=== PATIENT | male | born 1970 | race Caucasian/White ===

== ENCOUNTER → 2019-10-19 11:44 | Outpatient (BNVA) | payer MEDICAID, SELFPAY | PROVIDERS: Visit Provider Internal Medicine | DX: B19.20 Unspecified viral hepatitis C without hepatic coma (principal) | CPT/HCPCS: 80053; 82105; 85025; 87522; 87902 ==

== ENCOUNTER 2019-10-26 08:04 | Outpatient (CLI) | payer MEDICAID, SELFPAY ==
--- NOTE | 2019-10-26 08:00 | US_ITS ---
WS: [id number] ULTRASOUND ABDOMEN LIMITED CLINICAL INFORMATION: Hepatitis C, liver disease COMPARISON: None. FINDINGS: Liver Size: Normal. Craniocaudal length: 15.7 cm. Echogenicity: Normal. Surface nodularity: None. Mass (size and location): None. Bile ducts Intrahepatic ducts: Normal. Common bile duct diameter: 0.5 cm. Gallbladder Normal. Gallstones: None. Gallbladder sludge: None. Gallbladder wall thickening: None. Pericholecystic fluid: None. Sonographic Pop sign: Absent. Pancreas Normal as visualized. Right kidney: Normal. Hydronephrosis: None. Size: 11.3 cm x 6.3 cm x 6.0 cm. Abdominal aorta and IVC Visualized portions are normal. Ascites: None. US/US liver [id number] IMPRESSION: 1. Liver size upper limits of normal. Otherwise normal appearing liver. 2. No intrahepatic biliary duct dilatation. 3. Normal gallbladder and common bile duct. 4. No hydronephrosis in right kidney.
== END 2019-10-26 08:05 | disposition home or self-care (01) ==
PROVIDERS: Visit Provider Internal Medicine
DX: B19.20 Unspecified viral hepatitis C without hepatic coma (principal)
CPT/HCPCS: 76705

== ENCOUNTER → 2021-06-27 11:40 | Outpatient (BNVA) | payer BC, SELFPAY | PROVIDERS: Visit Provider Internal Medicine | DX: Z01.812 Encounter for preprocedural laboratory examination (principal); B19.20 Unspecified viral hepatitis C without hepatic coma; Z20.822 Contact with and (suspected) exposure to COVID-19; Z12.11 Encounter for screening for malignant neoplasm of colon | CPT/HCPCS: 80053; 82105; 87522; 87635 ==

== ENCOUNTER 2021-07-03 08:31 | Day surgery (SDC) | payer BC, MEDICAID, SELFPAY ==
[2021-06-30 09:49] VITALS: BMI 30.9
--- NOTE | 2021-07-03 08:44 | ANES.PREANE2 ---
Pre-Anesthetic Assessment Pre-Anesthetic Assessment: Height/Weight: Height 1.85 m Weight 106.594 kg Preop Diagnosis: Umbilical hernia Proposed Procedure: Operation Date: 07/03/21 10:00 Proposed Procedures p Colonoscopy [id number] [id number] Z12.11(Not Applicable) - Jourdan Aguila MD Familial anesthetic complications: None Last intake: > 8 hrs Social: Social History: Tobacco and No alcohol Exam: Pre-Anes Outpt Exam: alert, oriented x 3, clear to auscultation bilaterally and regular rate & rhythm Airway: MP: 3 Dentition: False Additional comments: large tongue Hepatic: Hepatic: Hepatitis (C - finished epclusa) Anesthetic Plan: ASA status: 2 Anesthesia: MAC Risk of > 500 ml blood loss (7ml/kg in children): No PFSH Anesthesia PFSH: Medical History (Updated 06/27/21 @ 11:20 by Jourdan Aguila MD) Hepatitis C Epclusa for 3 months in 2019. Umbilical hernia Surgical History H/O circumcision Family History Mother Cancer lung Grandmother Cancer brain Denies family history of Diabetes CAD (coronary artery disease) Anesthesia complication Bleeding disorder Social History Smoking and tobacco status: current every day smoker Alcohol intake: never Household members: spouse Marital status: Current occupational status: employed Current occupation: homestead History of recent travel: No Data Anesthesia Cardiac Studies: No Data to Display
[2021-07-03 09:09] VITALS: BP 178/103; PULSE 80; RESP 18; TEMP 36.4; O2SAT 98
[2021-07-03] MEDS: sodium chloride 0.9% 1,000 ML 30 ML IV (09:13)
--- NOTE | 2021-07-03 10:15 | W.PM.OPSFHP ---
Same Day Surgery H&P Indication for Procedure/HPI DATE OF PROCEDURE: July 03, 2021 CHIEF COMPLAINT/INDICATIONFOR SURGICAL PROCEDURE: Screening PREOP DIAGNOSIS: Umbilical hernia PLANNED PROCEDRUE: Operation Date: 07/03/21 10:00 Proposed Procedures p Colonoscopy [id number] Z12.11(Not Applicable) - Jourdan Aguila MD Medications/Allergies* Home Medications Medication Instructions Recorded Confirmed Type No Known Home Medications 06/30/21 07/03/21 History Allergies/Adverse Reactions Allergy/AdvReac Type Severity Reaction Status Date / Time No Known Allergies Allergy Verified 07/03/21 09:06 Current Medications: Generic Name Dose Route Start Last Admin Trade Name Freq PRN Reason Stop Dose Admin Sodium Chloride 1,000 mls @ 30 mls/hr 07/03/21 09:00 07/03/21 09:13 Sodium Chloride 0.9% IV 07/04/21 08:59 30 mls/hr .Q24H JULIÁN Administration Pertinent History/Comorbid Conditions* Medical History (Updated 06/27/21 @ 11:20 by Jourdan Aguila MD) Hepatitis C Epclusa for 3 months in 2019. Umbilical hernia Surgical History (Updated 01/21/20 @ 11:18 by Jonel Sommer MD) H/O circumcision Family History (Updated 01/21/20 @ 08:45 by Alyssa Best LPN) Cancer Mother lung Grandmother brain Denies family history of Diabetes CAD (coronary artery disease) Anesthesia complication Bleeding disorder Social History Smoking and tobacco status: current every day smoker Alcohol intake: never Household members: spouse Marital status: Current occupational status: employed Current occupation: homestead History of recent travel: No Pertinent Exam Findings alert, oriented x 3, clear to auscultation bilaterally, regular rate & rhythm, operative site marked and procedure specific exam findings Recommendations Surgery/Procedure today Coding Level of Care Code Acute Office Specialist for Bassem Hooks
[2021-07-03 10:31] VITALS: BP 156/101; PULSE 75; RESP 16; TEMP 36.3; O2SAT 94
== END 2021-07-03 11:10 | disposition home or self-care (01) ==
PROVIDERS: PCP Internal Medicine; Visit Provider Internal Medicine
PROC: 0DJD8ZZ Inspection of Lower Intestinal Tract, Via Natural or Artificial Opening Endoscopic (ICD-10-PCS; CPT 45378; principal; 2021-07-03 10:00)
DX: Z12.11 Encounter for screening for malignant neoplasm of colon (principal); Z86.19 Personal history of other infectious and parasitic diseases; F17.210 Nicotine dependence, cigarettes, uncomplicated
CPT/HCPCS: 45378; J2704; J7030